=== PATIENT | female | born 1970 | race African-American/Black ===

== ENCOUNTER 2018-11-14 17:17 | Emergency (ER) | payer OTHER ==
[2018-11-14] MEDS ORDERED: KETOROLAC TROMETHAMINE 30 MG/1 ML VIAL IM ONE (17:28)
--- NOTE | 2018-11-14 17:28 | PDOC ---
Rapid Medical Evaluation Time Seen by Provider: 11/14/18 17:26 Medical Evaluation: Allergies Allergy/AdvReac Type Severity Reaction Status Date / Time No Known Allergies Allergy Verified 09/10/17 12:49 11/14/18 17:26 CC: acute on chronic lower back radiating up spine PE: No focal findings Orders: urine, Toradol Patient will proceed to ED for continued evaluation. 11/14/18 17:28 Discharge Disposition - Diagnosis Back pain - Referrals - Patient Instructions - Post Discharge Activity
[2018-11-14 17:31] VITALS: BP 131/89; PULSE 60; TEMP 98.1; BMI 38.7
--- NOTE | 2018-11-14 17:54 | PDOC ---
History of Present Illness - General Chief Complaint: Chronic pain Stated Complaint: PAIN Time Seen by Provider: 11/14/18 17:26 - History of Present Illness Initial Comments: 11/14/18 17:54 48-year-old female with chronic exacerbation of lower back pain this episode is over the last few days without any precipitating traumatic event no radicular symptoms or loss of bowel or bladder function. Similar to prior back pain episode she has had in the past. Past History - Past Medical History Allergies/Adverse Reactions: Allergies Allergy/AdvReac Type Severity Reaction Status Date / Time montelukast [From Singulair] Allergy Verified 11/14/18 17:29 Home Medications: Ambulatory Orders Buspirone HCl [Buspar -] 10 mg PO BID 09/10/17 Divalproex [Depakote -] 500 mg PO BID 09/10/17 Buspirone HCl [Buspar -] 10 mg PO BID #60 tablet 09/21/17 Divalproex [Depakote -] 500 mg PO BID #60 tablet.ec 09/21/17 Quetiapine Fumarate [Seroquel -] 200 mg PO DAILY #30 tablet 09/21/17 Quetiapine Fumarate [Seroquel -] 300 mg PO HS #60 tablet 09/21/17 Albuterol Sulfate Inhaler - [Ventolin HFA Inhaler -] 2 inh PO Q4H PRN #1 inhaler 09/24/17 Amlodipine Besylate [Norvasc -] 10 mg PO DAILY #30 tablet 09/24/17 Enalapril Maleate [Vasotec -] 10 mg PO DAILY #30 tablet 09/24/17 Montelukast Sodium [Singulair] 10 mg PO DAILY #30 tablet 09/24/17 Anemia: No Asthma: Yes (dx 1997) Cancer: No Cardiac Disorders: No (dx. approx 2007) CVA: No COPD: No CHF: No Dementia: No Diabetes: No GI Disorders: No Disorders: No HTN: Yes Hypercholesterolemia: No Kidney Stones: No Liver Disease: No Seizures: No Thyroid Disease: No Other medical history: chronic back pain - Reproductive History PID: No - Suicide/Smoking/Psychosocial Hx Smoking History: Current every day smoker Have you smoked in the past 12 months: Yes Number of Cigarettes Smoked Daily: 5 Information on smoking cessation initiated: No 'Breaking Loose' booklet given: 09/10/17 Hx Alcohol Use: No Drug/Substance Use Hx: No Substance Use Type: Cocaine, Heroin, Opiates Hx Substance Use Treatment: Yes (longest abstinence 7 months) Review of Systems - Review of Systems Musculoskeletal: Yes: Back Pain *Physical Exam - Vital Signs Last Vital Signs Temp Pulse Resp BP Pulse Ox 98.1 F 60 16 131/89 98 11/14/18 17:27 11/14/18 17:27 11/14/18 17:27 11/14/18 17:27 11/14/18 17:27 - Physical Exam Comments: 11/14/18 17:53 decreased range of motion of the lumbar spine 5 out of 5 strength bilateral lower extremities without gross sensory motor deficits neurovascular intact ED Treatment Course - Medications Given in the ED: ED Medications Discontinued Medications Generic Name Dose Route Start Last Admin Trade Name Freq PRN Reason Stop Dose Admin Ketorolac Tromethamine 30 mg 11/14/18 17:28 11/14/18 17:41 Toradol Injection - IM 11/14/18 17:29 Not Given ONCE ONE Medical Decision Making - Medical Decision Making 11/14/18 17:52 48-year-old female with chronic lower back pain seeking Percocet which have given her in the emergency room she's refused Toradol. Neurosurgery *DC/Admit/Observation/Transfer Diagnosis at time of Disposition: Back pain - Discharge Dispostion Disposition: HOME Condition at time of disposition: Stable Decision to Admit order: No - Referrals Referrals: Kristofer Sorto MD, [facility] [Staff Physician] - - Patient Instructions Printed Discharge Instructions: Managing Chronic Low Back Pain Additional Instructions: If you have fail pain management, follow-up with neurosurgery for further evaluation and treatment options within the next 1-2 days return to the emergency room for worsening symptoms - Post Discharge Activity
== END 2018-11-14 17:58 | disposition home or self-care (01) ==
LOC: JERFT 17:17
DX: M54.5 Low back pain (principal); G89.29 Other chronic pain; I10 Essential (primary) hypertension; F17.210 Nicotine dependence, cigarettes, uncomplicated; J45.909 Unspecified asthma, uncomplicated
CPT/HCPCS: 99282-25

== ENCOUNTER 2024-04-17 16:51 | Inpatient (IN) | payer OTHER ==
[2024-04-17] MEDS: ALBUTEROL SO4 2.5/IPRATROPIUM 0.5 INH SOL 3 ML VIAL.NEB. NEB SCH (17:35)
[2024-04-17 17:56] VITALS: BMI 37.5
[2024-04-17] MEDS ORDERED: ALBUTEROL SO4 2.5/IPRATROPIUM 0.5 INH SOL 3 ML VIAL.NEB. NEB ONE (18:27)
[2024-04-17] MEDS ORDERED: methylPREDNISolone NA SUCC 125 MG/2 ML VIAL ONE (18:36)
[2024-04-17 18:40] LABS: BASO % 0.3 % (0-2.0); EOS % 1.5 % (0-4.5); HEMATOCRIT 39.4 % (32.4-45.2); LYMPH % 8.7 % (8-40); MCH 30.4 pg (25.7-33.7); MCHC 32.9 g/dl (32.0-36.0); MEAN CELL VOLUME 92.4 fl (80-96); MEAN PLT VOLUME 7.7 fl (7.5-11.1); MONO % 8.4 % (3.8-10.2); NEUT % 81.1 % (42.8-82.8); PLATELET COUNT 230 10^3/uL (134-434); RBC 4.27 M/mm3 (3.60-5.2)
[2024-04-17] MEDS: methylPREDNISolone NA SUCC 125 MG/2 ML VIAL IVPUSH ONE (18:40)
[2024-04-17 18:41] LABS: VENOUS BASE EXCESS -0.8 mmol/L (-2-2); VENOUS O2 SATURATION 37.4 % (70-80); VENOUS PCO2 50.2 mmHg (38-52); VENOUS PH 7.328 (7.310-7.410)
[2024-04-17 18:58] LABS: INR 1.04 (0.83-1.09); PROTHROMBIN TIME (PATIENT) 11.7 SEC (9.7-13.0)
[2024-04-17 19:00] LABS: ACTIVATED PTT 38.8 SECONDS (25.2-36.5)
[2024-04-17 19:03] LABS: POTASSIUM 4.4 mmol/L (3.5-5.1)
[2024-04-17 19:04] LABS: CALCIUM 9.3 mg/dL (8.5-10.1)
[2024-04-17 19:05] LABS: ALBUMIN 3.4 g/dl (3.4-5.0); BLOOD UREA NITROGEN 13.5 mg/dL (7-18)
[2024-04-17 19:10] LABS: BILIRUBIN,TOTAL 1.1 mg/dL (0.2-1); TOT PROT 6.5 g/dl (6.4-8.2)
[2024-04-17] MEDS ORDERED: MAGNESIUM SULFATE IN WATER 2 GM/50 ML IVPB IVPB ONE (19:54)
[2024-04-17] MEDS: MAGNESIUM SULFATE IN WATER 2 GM/50 ML IVPB IVPB ONE (20:03)
[2024-04-17] MEDS ORDERED: CEFTRIAXONE 1 G/50 ML PREMIX 50 ML IVPB ONE (21:06)
[2024-04-17] MEDS ORDERED: AZITHROMYCIN IVPB 500 MG/250 ML BAG IVPB ONE (21:07)
[2024-04-17] MEDS ORDERED: FUROSEMIDE 40 MG/4 ML INJECTABLE VIAL ONE (21:07)
[2024-04-17] MEDS ORDERED: NICOTINE 21 MG/24 HOURS TOPICAL PATCH ONE (21:36)
[2024-04-17] MEDS ORDERED: QUEtiapine FUMARATE 100 MG TABLET (FP) ONE (21:36)
[2024-04-17] MEDS ORDERED: DIVALPROEX NA *ER* EXTEND REL 250 MG TABLET.SA ONE (21:36)
[2024-04-17] MEDS ORDERED: FLUTICASONE/UMECLIDIN/VILANTER(100-62.5-25 TRELEGY ELLIPTA) INAHLER IH SCH (21:45)
[2024-04-17] MEDS: QUEtiapine FUMARATE 100 MG TABLET (FP) PO SCH (21:47)
[2024-04-17] MEDS: DIVALPROEX NA *ER* EXTEND REL 500 MG TABLET.SA (FP) PO SCH (21:47)
[2024-04-17] MEDS: FUROSEMIDE 40 MG/4 ML INJECTABLE VIAL IVPUSH ONE (21:47)
[2024-04-17] MEDS: NICOTINE 21 MG/24 HOURS TOPICAL PATCH TD SCH (21:47)
[2024-04-17] MEDS: AZITHROMYCIN IVPB 500 MG in DEXTROSE 5%-WATER - 250 ML IVPB ONE (22:16)
[2024-04-18] MEDS: ACETAMINOPHEN 325 MG TABLET (FP) PO PRN (00:04)
[2024-04-18] MEDS: oxyCODONE HCL 5 MG TABLET PO PRN ×3 (00:05→17:09)
[2024-04-18] MEDS ORDERED: NICOTINE POLACRILEX 4 MG LOZENGE BC PRN (02:50)
[2024-04-18] MEDS: FUROSEMIDE 40 MG/4 ML INJECTABLE VIAL IVPUSH SCH (04:10)
[2024-04-18 10:44] LABS: HEMATOCRIT 37.7 % (32.4-45.2); HEMOGLOBIN 12.1 GM/dL (10.7-15.3); MCH 29.8 pg (25.7-33.7); MCHC 32.1 g/dl (32.0-36.0); MEAN PLT VOLUME 8.5 fl (7.5-11.1); PLATELET COUNT 236 10^3/uL (134-434); RBC 4.06 M/mm3 (3.60-5.2); RDW 13.6 % (11.6-15.6); WHITE BLOOD COUNT 4.3 K/mm3 (4.0-10.0)
[2024-04-18] MEDS: CLOPIDOGREL BISULFATE 75 MG TABLET (FP) PO SCH (10:47)
[2024-04-18] MEDS: SPIRONOLACTONE 25 MG TABLET PO SCH (10:47)
[2024-04-18] MEDS: ASPIRIN COATED 81 MG TABLET.EC PO SCH (10:47)
[2024-04-18] MEDS: LOSARTAN POTASSIUM 50 MG TABLET PO SCH (10:47)
[2024-04-18] MEDS: predniSONE 20 MG TABLET (UD) PO SCH (10:48)
[2024-04-18] MEDS: metoPROLOL SUCCINATE 25 MG TAB.SR.24H (FP) PO SCH (10:48)
[2024-04-18] MEDS: ENOXAPARIN NA (PORCINE) 40 MG/0.4 ML DISP.SYRIN SQ SCH (10:49)
[2024-04-18 11:07] LABS: POTASSIUM 4.1 mmol/L (3.5-5.1)
[2024-04-18 11:10] LABS: ALBUMIN 3.1 g/dl (3.4-5.0); CALCIUM 9.2 mg/dL (8.5-10.1)
[2024-04-18 11:11] LABS: BLOOD UREA NITROGEN 17.9 mg/dL (7-18); MAGNESIUM 1.9 mg/dL (1.8-2.4)
[2024-04-18 11:13] LABS: CREATININE 1.1 mg/dL (0.55-1.3)
[2024-04-18 11:14] LABS: BILIRUBIN,TOTAL 0.6 mg/dL (0.2-1); PHOSPHOROUS 2.2 mg/dL (2.5-4.9)
[2024-04-18 11:52] LABS: TOT PROT 6.4 g/dl (6.4-8.2)
[2024-04-18] MEDS: CEFTRIAXONE 1 G/50 ML PREMIX 50 ML IVPB SCH (12:03)
[2024-04-18] MEDS: methylPREDNISolone NA SUCC 40 MG/1 ML VIAL IVPUSH ONE (12:04)
[2024-04-18] MEDS: ALBUTEROL SO4 2.5/IPRATROPIUM 0.5 INH SOL 3 ML VIAL.NEB. NEB SCH (12:09)
[2024-04-18] MEDS: AZITHROMYCIN IVPB 250 MG in DEXTROSE 5%-WATER - 250 ML IVPB SCH (13:26)
[2024-04-18] MEDS: methylPREDNISolone NA SUCC 40 MG/1 ML VIAL IVPUSH SCH (17:11)
[2024-04-18] MEDS: ATORVASTATIN CA 80 MG TABLET (FP) PO SCH (21:58)
[2024-04-19 09:47] LABS: BASO % 0.2 % (0-2.0); HEMATOCRIT 39.7 % (32.4-45.2); HEMOGLOBIN 13.1 GM/dL (10.7-15.3); LYMPH % 5.7 % (8-40); MCH 30.3 pg (25.7-33.7); MCHC 33.1 g/dl (32.0-36.0); MEAN CELL VOLUME 91.7 fl (80-96); MEAN PLT VOLUME 8.2 fl (7.5-11.1); MONO % 6.4 % (3.8-10.2); NEUT % 87.7 % (42.8-82.8); PLATELET COUNT 236 10^3/uL (134-434); RBC 4.33 M/mm3 (3.60-5.2); RDW 14.1 % (11.6-15.6); WHITE BLOOD COUNT 11.9 K/mm3 (4.0-10.0)
[2024-04-19] MEDS: FUROSEMIDE 40 MG/4 ML INJECTABLE VIAL IVPUSH SCH (10:06)
[2024-04-19] MEDS: PANTOPRAZOLE 40 MG TABLET PO SCH (10:06)
[2024-04-19 10:12] LABS: POTASSIUM 4.2 mmol/L (3.5-5.1)
[2024-04-19 10:14] LABS: BLOOD UREA NITROGEN 23.6 mg/dL (7-18); CALCIUM 9.5 mg/dL (8.5-10.1)
[2024-04-19 10:17] LABS: CREATININE 1.1 mg/dL (0.55-1.3)
[2024-04-19 10:18] LABS: PHOSPHOROUS 4.1 mg/dL (2.5-4.9)
[2024-04-19] MEDS ORDERED: oxyCODONE HCL 5 MG TABLET PO PRN (20:39)
[2024-04-19] MEDS: DIVALPROEX NA *ER* EXTEND REL 250 MG TABLET.SA PO SCH (22:18)
[2024-04-19] MEDS: ATORVASTATIN CA 80 MG TABLET (FP) PO SCH (22:18)
[2024-04-19] MEDS: QUEtiapine FUMARATE 100 MG TABLET (FP) PO SCH (22:18)
[2024-04-20] MEDS: methylPREDNISolone NA SUCC 40 MG/1 ML VIAL IVPUSH SCH (02:03)
[2024-04-20] MEDS: oxyCODONE HCL 5 MG TABLET PO PRN (02:08)
[2024-04-20] MEDS: ALBUTEROL SO4 2.5/IPRATROPIUM 0.5 INH SOL 3 ML VIAL.NEB. NEB SCH (07:30)
[2024-04-20 08:39] LABS: HEMATOCRIT 38.2 % (32.4-45.2); HEMOGLOBIN 12.3 GM/dL (10.7-15.3); MCH 30.1 pg (25.7-33.7); MCHC 32.2 g/dl (32.0-36.0); MEAN CELL VOLUME 93.3 fl (80-96); PLATELET COUNT 230 10^3/uL (134-434); RBC 4.09 M/mm3 (3.60-5.2); RDW 14.4 % (11.6-15.6); WHITE BLOOD COUNT 10.8 K/mm3 (4.0-10.0)
[2024-04-20 09:11] LABS: POTASSIUM 4.3 mmol/L (3.5-5.1)
[2024-04-20 09:13] LABS: CALCIUM 9.4 mg/dL (8.5-10.1)
[2024-04-20 09:14] LABS: BLOOD UREA NITROGEN 26.3 mg/dL (7-18)
[2024-04-20 09:17] LABS: CREATININE 1.2 mg/dL (0.55-1.3); PHOSPHOROUS 3.2 mg/dL (2.5-4.9)
[2024-04-20] MEDS ORDERED: FUROSEMIDE 40 MG TABLET (FP) PO SCH (10:00)
[2024-04-20] MEDS ORDERED: predniSONE 20 MG TABLET (UD) PO SCH (10:00)
[2024-04-20] MEDS: ENOXAPARIN NA (PORCINE) 40 MG/0.4 ML DISP.SYRIN SQ SCH (11:16)
[2024-04-20] MEDS: CEFTRIAXONE 1 G/50 ML PREMIX 50 ML IVPB SCH (11:16)
[2024-04-20] MEDS: NICOTINE 21 MG/24 HOURS TOPICAL PATCH TD SCH (11:16)
[2024-04-20] MEDS: PANTOPRAZOLE 40 MG TABLET PO SCH (11:17)
[2024-04-20] MEDS: predniSONE 40 MG, predniSONE 10 MG PO SCH (11:17)
[2024-04-20] MEDS: CLOPIDOGREL BISULFATE 75 MG TABLET (FP) PO SCH (11:17)
[2024-04-20] MEDS: ASPIRIN COATED 81 MG TABLET.EC PO SCH (11:17)
[2024-04-20] MEDS: metoPROLOL SUCCINATE 25 MG TAB.SR.24H (FP) PO SCH (11:18)
[2024-04-20] MEDS: SPIRONOLACTONE 25 MG TABLET PO SCH (11:18)
[2024-04-20] MEDS: LOSARTAN POTASSIUM 50 MG TABLET PO SCH (11:18)
[2024-04-20] MEDS: FUROSEMIDE 40 MG/4 ML INJECTABLE VIAL IVPUSH SCH (11:19)
[2024-04-20 12:27] LABS: ANISOCYTOSIS 0; HELMET CELLS 0; HOWELL-JOLLY BODIES 0; MACROCYTOSIS 0; OVALOCYTE 0; ROULEAU 0; SICKELED CELLS 0; TARGET CELLS 0; TEAR DROP CELLS 0; TOXIC GRANULATION 0
[2024-04-20] MEDS: AZITHROMYCIN IVPB 250 MG in DEXTROSE 5%-WATER - 250 ML IVPB SCH (17:18)
[2024-04-21 06:50] LABS: HEMATOCRIT 37.3 % (32.4-45.2); HEMOGLOBIN 12.1 GM/dL (10.7-15.3); MCH 30.4 pg (25.7-33.7); MCHC 32.4 g/dl (32.0-36.0); MEAN CELL VOLUME 93.7 fl (80-96); MEAN PLT VOLUME 8.6 fl (7.5-11.1); PLATELET COUNT 221 10^3/uL (134-434); RBC 3.98 M/mm3 (3.60-5.2); RDW 14.3 % (11.6-15.6); WHITE BLOOD COUNT 9.9 K/mm3 (4.0-10.0)
[2024-04-21] MEDS: BENZOCAINE/MENTH/CETYLPYRD CL 1 EACH LOZENGE MM PRN (06:52)
[2024-04-21] MEDS: FUROSEMIDE 40 MG TABLET (FP) PO SCH (06:53)
[2024-04-21 07:10] LABS: POTASSIUM 4.1 mmol/L (3.5-5.1)
[2024-04-21 07:17] LABS: BLOOD UREA NITROGEN 27.5 mg/dL (7-18)
[2024-04-21] MEDS: oxyCODONE HCL 5 MG TABLET PO PRN (13:25)
[2024-04-21] MEDS ORDERED: oxyCODONE HCL 5 MG TABLET PO SCH (16:00)
[2024-04-21] MEDS: PHENOL 177 ML SPRAY BOTTLE MM ONE (17:08)
[2024-04-22] MEDS: ACETAMINOPHEN 500 MG TABLET (FP) PO PRN (11:56)
[2024-04-22] MEDS: NICOTINE POLACRILEX 4 MG LOZENGE BC PRN (15:13)
[2024-04-22] MEDS: traMADol HCL 50 MG TABLET PO PRN (18:38)
[2024-04-23 09:11] LABS: HEMATOCRIT 38.6 % (32.4-45.2); HEMOGLOBIN 12.8 GM/dL (10.7-15.3); MCH 30.4 pg (25.7-33.7); MCHC 33.1 g/dl (32.0-36.0); MEAN CELL VOLUME 91.6 fl (80-96); MEAN PLT VOLUME 8.5 fl (7.5-11.1); PLATELET COUNT 223 10^3/uL (134-434); RBC 4.21 M/mm3 (3.60-5.2); RDW 13.9 % (11.6-15.6); WHITE BLOOD COUNT 9.3 K/mm3 (4.0-10.0)
[2024-04-23 09:29] LABS: POTASSIUM 4.2 mmol/L (3.5-5.1)
[2024-04-23 09:36] LABS: BLOOD UREA NITROGEN 29.9 mg/dL (7-18); MAGNESIUM 2.3 mg/dL (1.8-2.4)
[2024-04-23 09:39] LABS: CREATININE 1.1 mg/dL (0.55-1.3)
[2024-04-23 09:40] LABS: PHOSPHOROUS 3.3 mg/dL (2.5-4.9)
[2024-04-23 10:10] LABS: ANISOCYTOSIS 0; MACROCYTOSIS 0
[2024-04-23] MEDS: oxyCODONE HCL 5 MG TABLET PO PRN (12:03)
[2024-04-23] MEDS: LEVALBUTEROL HCL 0.31 MG/3 ML VIAL.NEB IH SCH (19:24)
[2024-04-23] MEDS: IPRATROPIUM BR 0.02% 0.5 MG/2.5 ML VIAL.NEB. NEB SCH (19:24)
[2024-04-23] MEDS: SIMETHICONE 80 MG TAB.CHEW (FP) PO ONE (21:12)
[2024-04-24] MEDS: FUROSEMIDE 40 MG TABLET (FP) PO SCH (10:23)
[2024-04-24 22:22] VITALS: RESP 18
[2024-04-24] MEDS: ACETAMINOPHEN 500 MG TABLET (FP) PO PRN (23:37)
[2024-04-25 11:21] VITALS: BP 110/66; PULSE 97; TEMP 97.9
== END 2024-04-25 15:06 | disposition home or self-care (01) | DRG 194 ==
LOC: JER 16:51 → JERBED 19:49 → J5S 23:38 → OBSVTOIN 04-19 08:34 → J4S 04-19 16:46
PROVIDERS: ADMIT Internal Medicine; ATTEND Physician Assistant
DX: I11.0 Hypertensive heart disease with heart failure (principal); I47.29 Other ventricular tachycardia; J18.9 Pneumonia, unspecified organism; J44.0 Chronic obstructive pulmonary disease with (acute) lower respiratory infection; F17.210 Nicotine dependence, cigarettes, uncomplicated; R09.02 Hypoxemia; I50.23 Acute on chronic systolic (congestive) heart failure
CPT/HCPCS: 0241U-QW; 36415; 71045-TC-FY; 71250-TC; 80048; 80053; 82803; 83735; 83880; 84100; 84484; 85025; 85027; 85610; 85730; 87651; 87899; 93005; 93010; 93306-TC; 94640; 94761; 97116-GP; 97161-GP; 99285-25; G0378

== ENCOUNTER 2024-10-15 09:50 | Inpatient (IN) | payer OTHER ==
[2024-10-15 09:58] VITALS: BMI 33.0
[2024-10-15] MEDS ORDERED: ALBUTEROL SO4 2.5/IPRATROPIUM 0.5 INH SOL 3 ML VIAL.NEB. NEB ONE ×3 (11:04→20:09)
[2024-10-15] MEDS ORDERED: ACETAMINOPHEN INJECTION 100 ML ONE (11:05)
[2024-10-15] MEDS ORDERED: DEXAMETHASONE SOD PHOSPHATE 10 MG/1 ML VIAL ONE (11:05)
[2024-10-15 11:13] LABS: ABSOLUTE IMMATURE GRANULOCYTES 0.01 x10^3/uL (0.0-0.031); BASOPHILS # 0.02 x10^3/uL (0.01-0.08); EOSINOPHIL % 0.3 % (0.7-5.8); EOSINOPHILS # 0.02 x10^3/uL (0.04-0.36); MCHC 32.2 g/dl (32.2-35.5); MEAN CELL VOLUME 95.0 fl (79.4-94.8); MEAN PLT VOLUME 10.0 fl (9.4-12.3); MONOCYTE # 0.75 x10^3/uL (0.24-0.86); MONOCYTE % 12.4 % (4.7-12.5); RDW 13.2 % (12.3-16.6)
[2024-10-15] MEDS: ACETAMINOPHEN 1000 MG/100 ML BAG IVPB ONE ×2 (11:14→11:15)
[2024-10-15] MEDS: ALBUTEROL SO4 2.5/IPRATROPIUM 0.5 INH SOL 3 ML VIAL.NEB. NEB SCH ×2 (11:14→15:26)
[2024-10-15] MEDS: DEXAMETHASONE SOD PHOSPHATE 20 MG/5 ML VIAL IVPB ONE (11:14)
[2024-10-15] MEDS: ACETAMINOPHEN 500 MG TABLET (FP) PO ONE (11:16)
[2024-10-15 11:28] LABS: BG HCT 38.0 % (32.4-45.2); VENOUS BASE EXCESS 1.3 mmol/L (-2-2); VENOUS O2 SATURATION 49.2 % (70-80); VENOUS PCO2 39.0 mmHg (38-52); VENOUS PH 7.434 (7.310-7.410)
[2024-10-15 11:35] LABS: CO2 27.0 mmol/L (21-32); GLUCOSE,RANDOM 102.0 mg/dL (74-106)
[2024-10-15 11:38] LABS: CREATININE 1.0 mg/dL (0.55-1.3); SGOT/AST 23.0 U/L (15-37); SGPT/ALT 27.0 U/L (13-61)
[2024-10-15 11:40] LABS: TOT PROT 6.1 g/dl (6.4-8.2)
[2024-10-15 11:41] LABS: ALK PHOS 56.0 U/L (45-117)
[2024-10-15 11:43] LABS: N-TERMINAL BNP 8091.8 pg/ml (5-125)
[2024-10-15] MEDS ORDERED: FUROSEMIDE 40 MG/4 ML INJECTABLE VIAL ONE (12:12)
[2024-10-15] MEDS: FUROSEMIDE 40 MG/4 ML INJECTABLE VIAL IVPUSH ONE (12:13)
[2024-10-15] MEDS ORDERED: FENTANYL CITRATE/PF 50 MCG/ML VIAL ONE (12:25)
[2024-10-15 13:06] LABS: URINE APPEARANCE CLEAR; URINE BILIRUBIN NEGATIVE (NEGATIVE); URINE COLOR YELLOW; URINE GLUCOSE (UA) NEGATIVE (NEGATIVE); URINE KETONE NEGATIVE (NEGATIVE); URINE LEUK ESTERASE NEGATIVE (NEGATIVE); URINE NITRITE NEGATIVE (NEGATIVE); URINE PROTEIN NEGATIVE (NEGATIVE); URINE UROBILINOGEN 1.0 mg/dL (0.2-1.0)
[2024-10-15 13:18] LABS: HIV INTERPRETATION NEGATIVE (NEGATIVE)
[2024-10-15 13:21] LABS: HCV DIAGNOSTIC IN-HOUSE W/RFLX NON-REACTIVE (NONREACTIVE)
[2024-10-15] MEDS ORDERED: ASPIRIN COATED 81 MG TABLET.EC ONE (15:24)
[2024-10-15] MEDS ORDERED: LOSARTAN POTASSIUM 50 MG TABLET ONE (15:24)
[2024-10-15] MEDS ORDERED: CLOPIDOGREL BISULFATE 75 MG TABLET (FP) ONE (15:25)
[2024-10-15] MEDS: ASPIRIN COATED 81 MG TABLET.EC PO SCH (15:26)
[2024-10-15] MEDS: CLOPIDOGREL BISULFATE 75 MG TABLET (FP) PO SCH (15:26)
[2024-10-15] MEDS: ACETAMINOPHEN 325 MG TABLET (FP) PO PRN (15:26)
[2024-10-15] MEDS: LOSARTAN POTASSIUM 50 MG TABLET PO SCH (15:26)
[2024-10-15] MEDS ORDERED: ACETAMINOPHEN 325 MG TABLET (FP) ONE (15:27)
[2024-10-15] MEDS: SPIRONOLACTONE 25 MG TABLET PO SCH (15:36)
[2024-10-15] MEDS ORDERED: MORPHINE SULFATE 2 MG/ML SYRINGE ONE ×2 (15:52→20:09)
[2024-10-15] MEDS: morphine CARPU-JECT 2 MG/1 ML DISP.SYRIN IVPUSH PRN (16:05)
[2024-10-15] MEDS ORDERED: NICOTINE 14 MG/24 HOURS TOPICAL PATCH TD ONE (18:53)
[2024-10-15] MEDS: NICOTINE 14 MG/24 HOURS TOPICAL PATCH TD SCH (18:54)
[2024-10-15] MEDS ORDERED: ATORVASTATIN CA 80 MG TABLET (FP) ONE (21:34)
[2024-10-15] MEDS ORDERED: MONTELUKAST NA 10 MG TABLET ONE (21:34)
[2024-10-15] MEDS ORDERED: POLYETHYLENE GLYCOL (HEALTHYLAX) 3350 17 GM PACKET ONE (22:08)
[2024-10-15] MEDS: POLYETHYLENE GLYCOL (HEALTHYLAX) 3350 17 GM PACKET PO SCH (22:09)
[2024-10-15] MEDS: ATORVASTATIN CA 80 MG TABLET (FP) PO SCH (22:09)
[2024-10-15] MEDS: BUDESONIDE/FORMETEROL FUMARATE 80/4.5 mcg INHALER IH SCH (22:10)
[2024-10-15] MEDS: MONTELUKAST NA 5 MG TAB.CHEW PO SCH (22:15)
[2024-10-16 07:15] LABS: MCHC 31.8 g/dl (32.2-35.5); MEAN CELL VOLUME 93.6 fl (79.4-94.8); MEAN PLT VOLUME 10.5 fl (9.4-12.3); RDW 12.8 % (12.3-16.6)
[2024-10-16 07:39] LABS: CO2 27.0 mmol/L (21-32); GLUCOSE,RANDOM 115.0 mg/dL (74-106)
[2024-10-16 07:42] LABS: CREATININE 0.9 mg/dL (0.55-1.3); SGOT/AST 19.0 U/L (15-37); SGPT/ALT 24.0 U/L (13-61)
[2024-10-16 07:43] LABS: TOT PROT 5.9 g/dl (6.4-8.2)
[2024-10-16 07:44] LABS: ALK PHOS 54.0 U/L (45-117)
[2024-10-16] MEDS ORDERED: FUROSEMIDE 40 MG TABLET (FP) PO SCH (10:00)
[2024-10-16] MEDS: predniSONE 20 MG TABLET (UD) PO SCH (10:00)
[2024-10-16] MEDS: ENOXAPARIN NA (PORCINE) 40 MG/0.4 ML DISP.SYRIN SQ SCH (10:01)
[2024-10-16] MEDS: FUROSEMIDE 40 MG/4 ML INJECTABLE VIAL IVPUSH SCH (11:59)
[2024-10-16] MEDS: MAGNESIUM 1GM/D5W - 1 GM/100 ML IVPB IVPB ONE (12:12)
[2024-10-16] MEDS: POTASSIUM CHLORIDE ORAL LIQUID 20 MEQ/15 ML PO ONE (12:12)
[2024-10-16] MEDS: REMDESIVIR 200 MG in SODIUM CHLORIDE 250 ML IVPB ONE (13:23)
[2024-10-16] MEDS: MONTELUKAST NA 10 MG TABLET PO SCH (21:50)
[2024-10-16] MEDS: QUEtiapine FUMARATE 100 MG TABLET (FP) PO ONE (22:42)
[2024-10-17 07:29] LABS: MCHC 30.9 g/dl (32.2-35.5); MEAN CELL VOLUME 95.5 fl (79.4-94.8); MEAN PLT VOLUME 10.7 fl (9.4-12.3); RDW 12.9 % (12.3-16.6)
[2024-10-17 08:19] LABS: CO2 28.0 mmol/L (21-32); GLUCOSE,RANDOM 198.0 mg/dL (74-106)
[2024-10-17 08:20] LABS: CREATININE 1.1 mg/dL (0.55-1.3)
[2024-10-17 08:21] LABS: SGOT/AST 13.0 U/L (15-37)
[2024-10-17 08:22] LABS: TOT PROT 5.7 g/dl (6.4-8.2)
[2024-10-17 08:23] LABS: ALK PHOS 46.0 U/L (45-117); SGPT/ALT 21.0 U/L (13-61)
[2024-10-17] MEDS: SPIRONOLACTONE 25 MG TABLET PO SCH (10:26)
[2024-10-17] MEDS: REMDESIVIR 100 MG in SODIUM CHLORIDE 250 ML IVPB SCH (16:35)
[2024-10-17 17:51] VITALS: RESP 18
[2024-10-17] MEDS: guaiFENesin 200 MG/10 ML 10 ML UNIT-DOSE CUPS PO PRN (23:52)
[2024-10-18 07:11] LABS: MCHC 31.7 g/dl (32.2-35.5); MEAN CELL VOLUME 96.0 fl (79.4-94.8); MEAN PLT VOLUME 10.5 fl (9.4-12.3); RDW 13.0 % (12.3-16.6)
[2024-10-18 07:27] LABS: CO2 32.0 mmol/L (21-32); GLUCOSE,RANDOM 108.0 mg/dL (74-106)
[2024-10-18 07:30] LABS: CREATININE 1.0 mg/dL (0.55-1.3); SGOT/AST 10.0 U/L (15-37); SGPT/ALT 21.0 U/L (13-61)
[2024-10-18 07:32] LABS: TOT PROT 6.2 g/dl (6.4-8.2)
[2024-10-18 07:33] LABS: ALK PHOS 49.0 U/L (45-117)
[2024-10-18] MEDS ORDERED: MENTHOL/PHENOL 1 EACH UD MM PRN (14:26)
[2024-10-18] MEDS: guaiFENesin 600 MG TABLET.ER (FP) PO SCH (15:24)
[2024-10-18] MEDS: morphine CARPU-JECT 2 MG/1 ML DISP.SYRIN IVPUSH ONE (19:53)
[2024-10-18] MEDS: BENZOCAINE/MENTH/CETYLPYRD CL 1 EACH LOZENGE MM PRN (20:58)
[2024-10-18] MEDS ORDERED: guaiFENesin 600 MG TABLET.ER (FP) PO SCH (22:00)
[2024-10-19 11:33] LABS: MCHC 32.2 g/dl (32.2-35.5); MEAN CELL VOLUME 95.2 fl (79.4-94.8); MEAN PLT VOLUME 10.1 fl (9.4-12.3); RDW 13.0 % (12.3-16.6)
[2024-10-19 12:12] LABS: GLUCOSE,RANDOM 118.0 mg/dL (74-106)
[2024-10-19 12:14] LABS: CREATININE 1.0 mg/dL (0.55-1.3)
[2024-10-19 12:15] LABS: SGOT/AST 11.0 U/L (15-37); SGPT/ALT 23.0 U/L (13-61)
[2024-10-19 12:16] LABS: TOT PROT 6.5 g/dl (6.4-8.2)
[2024-10-19 12:17] LABS: ALK PHOS 48.0 U/L (45-117); CO2 32.0 mmol/L (21-32)
[2024-10-19 13:16] VITALS: BP 168/100; PULSE 75; TEMP 98.6
== END 2024-10-19 19:09 | disposition home or self-care (01) | DRG 137 ==
LOC: JER 09:50 → JERBED 12:09 → J4W 10-16 00:18 → OBSVTOIN 10-17 13:55
PROVIDERS: ADMIT Student in an Organized Health Care Education/Training Program; ATTEND Internal Medicine
PROC: XW033E5 Introduction of Remdesivir Anti-infective into Peripheral Vein, Percutaneous Approach, New Technology Group 5 (ICD-10-PCS; principal; 2024-10-16)
DX: U07.1 COVID-19 (principal); I24.89 Other forms of acute ischemic heart disease; J45.901 Unspecified asthma with (acute) exacerbation; J44.1 Chronic obstructive pulmonary disease with (acute) exacerbation; I47.29 Other ventricular tachycardia; I25.10 Atherosclerotic heart disease of native coronary artery without angina pectoris; I73.9 Peripheral vascular disease, unspecified; I50.23 Acute on chronic systolic (congestive) heart failure
CPT/HCPCS: 36415; 71045-TC-FY; 80053; 81003; 82803; 83735; 83880; 84484; 85025; 85027; 86803; 87086; 87389; 87637-QW; 93005; 93010; 93970-TC; 94640; 99285-25; G0378; J0248